=== PATIENT | female | born 1975 | race Caucasian/White ===

== ENCOUNTER → 2018-01-12 | Outpatient (CLI) | payer OTHER ==
[~2018-01-12] MED LIST: FLAGYL500 MG PO; LEVOTHYROXINE0.05 MG PO
[2018-01-12 09:11] LABS: ALBUMIN 3.7 g/dL (3.4-5.0); ALKALINE PHOSPHATASE 65 U/L (46-116); CHOLESTEROL 203 mg/dL (<200); DIRECT BILIRUBIN 0.1 mg/dL (<0.1-0.3); HDL CHOLESTEROL 45 mg/dL (>40); LDL CHOLESTEROL 143 mg/dL (<100); SERUM ASSESSMENT Clear; SGOT 22 U/L (15-37); SGPT 33 U/L (30-65); TC:HDL 4.5 Ratio (Not establshd); TOTAL BILIRUBIN 0.5 mg/dL (<0.1-1.0); TOTAL PROTEIN 7.5 g/dL (6.4-8.2); TRIGLYCERIDE 76 mg/dL (<150); VLDL 15 mg/dL (<40)
== END ==
LOC: M.LAB 08:24
PROVIDERS: Family Medicine
DX: Z13.220 Encounter for screening for lipoid disorders (principal); E03.9 Hypothyroidism, unspecified

== ENCOUNTER → 2018-10-20 | Outpatient (CLI) | payer OTHER | LOC: M.ULTRA 14:41 | DX: E04.9 Nontoxic goiter, unspecified (principal) ==

== ENCOUNTER → 2018-11-03 | Outpatient (CLI) | payer OTHER | LOC: M.LAB 11:30 | DX: E04.9 Nontoxic goiter, unspecified (principal) ==

== ENCOUNTER → 2019-04-06 | Outpatient (CLI) | payer OTHER | LOC: M.RAD 07:18 | DX: Z12.31 Encounter for screening mammogram for malignant neoplasm of breast (principal) ==